=== PATIENT | female | born 1950 | race Asian ===

== ENCOUNTER 2023-11-13 14:52 | Emergency (ER) | payer MEDICAID, SELFPAY ==
[2023-11-13 15:01] VITALS: BP 100/70
--- NOTE | 2023-11-13 18:10 | EDRN ---
Adalberto FANG in room w/ pt at this time.
[2023-11-13] MEDS: PROTONIX 40 MG PO (18:29)
[2023-11-13] MEDS: CARAFATE SUSPENSION 1 GM PO (18:30)
[2023-11-13 18:32] VITALS: BP 211/98
[2023-11-13 18:35] VITALS: BP 213/94
--- NOTE | 2023-11-13 18:35 | ED.GENMED ---
History of Present Illness
General
Chief Complaint: Oral/Mouth Problem
Source: spouse
Exam Limitations: other (language barrier with patient. )
Time Seen by Provider: 11/13/23 18:00
Travel History
Have you had any contact with someone who has COVID-19?: No
Do you have any symptoms of coronavirus? Fever > 100 degrees, chills, cough, shortness of breath, sore throat, loss of taste or smell, muscle aches, or headache?: No
History of Present Illness
History of Present Illness:
This is a 73 year old female that comes in with her with c/o burning and itching in her mouth. States that she has difficultly eating due to the burning and this has been going on for the past 3-4 months. Denies any fever, chills, chest
pain, SOB, abd pain, nausea, vomiting, diarrhea, headache, dizziness.
Past History
Past History
ED Past Medical History: Cancer (Left breast CA), HTN, Hypercholesterolemia and Hypothyroidism
ED Past Surgical History: Other (Left lumpectomy)
Social History
Tobacco: Non-smoker
Alcohol: None
Drug: None
Personal:
Living: with family
Employment: Not employed
Family History
Family History: Other
Review of Systems
Review of Systems
All Other Systems: ROS reviewed and negative except as documented in HPI and ROS
Constitutional: Reports no symptoms; Denies fever or chills
EENT: Reports other (Mouth burning and itching)
Respiratory: Reports no symptoms; Denies cough or trouble breathing
Cardiac: Reports no symptoms; Denies chest pain
ABD/GI: Reports no symptoms; Denies abdominal pain, nausea, vomiting or diarrhea
: Reports no symptoms; Denies dysuria, frequency or urgency
Musculoskeletal: Reports no symptoms
Skin: Reports no symptoms
Neurological: Reports no symptoms; Denies dizzy or headache
Psychiatric: Reports no symptoms
Phy Exam
General Physical Exam
General Presentation: no apparent distress
General age: appears stated age
General Skin: warm and dry
General Habitus: normal
General Mental: alert
General Hydration: appears well hydrated
ENT Exam
ENT Exam: TM's normal, pharynx normal, neck supple and other (Negative for any swelling, redness. Tongue is normal and patient is moving the tongue all over with difficulty. )
Eye Exam
Eye Exam: EOMI
Cardiovascular Exam
Cardiovascular Exam: regular rate/rhythm, no edema, no murmur and normal peripheral pulses
Pulmonary Exam
Pulmonary Exam: lungs clear, no respiratory distress, no rales, chest non tender, no crackles, no rhonchi, no wheezing and no cough
Gastrointestinal Exam
Gastrointestinal Exam: normal bowel sounds, non tender, soft, no organomegaly, no pulsatile mass and non distended
Musculoskeletal Exam
Musculoskeletal Exam: full ROM and no edema
Skin Exam
Skin Exam: normal color, warm/dry, no rash and no petechia
Psychiatric Exam
Psychiatric Exam: normal mood/affect
Course
Orders/Labs/Results
Orders:
Orders
11/13/23 18:14
Pantoprazole [Protonix] 40 mg PO NOW STA
Sucralfate Suspension [Carafate Suspension] 1 gm PO NOW STA
Vital Signs
Initial and Last Documented VS:
Initial Vital Signs
Temp Pulse Resp BP Pulse Ox
98.0 F 67 16 100/70 98
11/13/23 15:01 11/13/23 15:01 11/13/23 15:01 11/13/23 15:01 11/13/23 15:01
Last Documented Vital Signs
Temp Pulse Resp BP Pulse Ox
98.0 F 86 16 211/98 97
11/13/23 15:01 11/13/23 18:32 11/13/23 18:32 11/13/23 18:32 11/13/23 18:32
MDM/Problems Addressed
Differential Diagnosis Includes:
Allergic reaction to food, Gingivitis,
MDM/Problems Addressed:
This is a 73 year old female that comes in with c/o burning and itching in her mouth for the past 3-4 months. is the translating. States that her tongue is not swollen but she keeps complaining.
Will start patient on Protonix and Carafate. Patient is to follow up with the Dentist for further evaluation. Patient to return with any concerns concerns.
Chronic conditions affecting care:
NA
Acute Exacerbation and/or Progression of Chronic Illness:
NA
*Pulse Oximetry
Patient hypoxic: no
*EKG
Interpreted by ED Provider?: NA
Rate: EKG- N/A
*Counter Top Maker Interpretation
Rate: Counter Top Maker- N/A
*Critical Care Note
Total Time (30-74mins, 75-104mins- exclusive of procedures): Not Applicable
ED Attending Note
-
Portions of this chart may have been created with voice recognition software.� Occasional wrong word or��sound alike� substitutions may have occurred due to the inherent limitations of voice recognition software.
Discharge Plan
Departure
Patient Disposition: Home (Routine Discharge)
Date of Disposition: 11/13/23
Time of Disposition: 18:43
Patient with high blood pressure during this ER visit?: Yes
Covid-19: Not Applicable
Discharge Problem:
Disease of mouth
Instructions: Burning Mouth Syndrome, BLOOD PRESSURE
Prescriptions:
New
pantoprazole [Protonix] 40 mg tablet,delayed release (DR/EC)
40 mg PO DAILY Qty: 30 0RF
sucralfate [Carafate] 1 gram tablet
1 g PO ACHS Qty: 40 0RF
Rx Instructions:
dissolve 2tsp water, 30min-1hour before meals HS
No Action
pilocarpine HCl 5 MG tablet
5 mg PO TID
levothyroxine 50 MCG tablet
50 mcg PO DAILY
losartan 25 MG tablet
25 mg PO DAILY
escitalopram oxalate 10 MG tablet
10 mg PO DAILY
metoprolol tartrate 25 MG tablet
25 mg PO BID
oxybutynin chloride 10 MG tablet extended release 24hr
10 mg PO .DAILY SEE NOTE
Patient Comments:
05/19/17 Per pt she has not taking in about 3 weeks or a month because it gives her dry mouth , but recently filled at pharmacy to start taking again
triamcinolone acetonide 1 APPLIC cream
1 applic topical BID
omeprazole 40 MG capsule,delayed release(DR/EC)
40 mg PO DAILY
acetaminophen [Tylenol Extra Strength] 500 MG tablet
500 - 1,000 mg PO DAILYPRN PRN (Reason: pain)
tamoxifen [Nolvadex] 20 MG tablet
20 mg PO DAILY
prednisone 50 MG tablet
50 mg PO DAILY Qty: 2 0RF
Referrals:
Triny Moore, DMD [[facility]] - Follow up in 2-3 days
UNKNOWN - PT DOES,NOT KNOW [Family Provider] -
Activity Restrictions/Additional Instructions:
As discussed, your will need to see the dentist for further evaluation. Please call and make an appointment. Please increase her water intake to 8-8oz glasses daily. You have been given 2 prescriptions that will help decrease any reflux. IF
YOU HAVE ANY OTHER CONCERNS PLEASE RETURN TO THE EMERGENCY ROOM
Interventions
Interventions:
*Risk Screen - Suicide Last Done: 11/13/23 18:25
*General Assessment Last Done: 11/13/23 18:25
*Neglect/Abuse Screening Last Done: 11/13/23 18:25
ED- Fall Risk Assessment Last Done: 11/13/23 18:25
*ED COVID-19 Vaccine History Last Done: 11/13/23 15:01
[2023-11-13 19:00] VITALS: BP 221/97
== END 2023-11-13 19:10 | disposition home or self-care (01) ==
LOC: EMR 14:52
PROVIDERS: EMERGENCY PHYSICIAN Emergency Medicine
DX: K08.89 Other specified disorders of teeth and supporting structures (principal); K14.8 Other diseases of tongue; I10 Essential (primary) hypertension
CPT/HCPCS: 99283

== ENCOUNTER 2023-12-21 22:13 | Observation (INO) | payer OTHER, SELFPAY ==
[2023-12-21] VITALS (7 sets, daily range): BP systolic 127–209; BP diastolic 85–154
[2023-12-21 16:17] LABS: % Basophils 0.8 % (0-2); % Immature Granulocytes 0.5 % (0-0.5); % Lymphocytes 31.4 % (20.5-51.1); % Neutrophils 51.3 % (42.2-75.2); Absolute Basophils 0.1 10^3/uL (0-0.2); Absolute Eosinophils 0.3 10^3/uL (0-0.7); Absolute Lymphocytes 2.7 10^3/uL (1.2-3.4); Absolute Neutrophils 4.4 10^3/uL (1.4-6.5); Hematocrit 44.6 % (37.0-47.0); Hemoglobin 14.6 g/dL (12.0-16.0); Mean Corp Hgb Conc. 32.7 g/dL (33.0-37.0); Mean Corpuscular Hgb 30.2 pg (27.0-31.0); Mean Corpuscular Volume 92.3 fL (81.0-99.0); Mean Platelet Volume 10.9 fL (7.4-10.4); Nucleated Red Blood Cells % 0 %; Platelet Count 169 10^3/uL (130-400); Red Blood Cell Count 4.83 10^6/uL (4.20-5.40); Red Cell Dist. Width 13.2 % (11.5-14.5); White Blood Cell Count 8.5 10^3/uL (4.8-10.8)
[2023-12-21 16:33] LABS: ALT (SGPT) 17 U/L (0-35); AST (SGOT) 25 U/L (14-36); Albumin 4.3 g/dl (3.5-5.0); Alkaline Phosphatase 100 U/L (38-126); Blood Urea Nitrogen 27 mg/dl (7-17); Calcium 9.4 mg/dl (8.4-10.2); Carbon Dioxide 25 mmol/L (22-30); Chloride 99 mmol/L (98-107); Glucose 107 mg/dl (70-99); Potassium 4.4 mmol/L (3.5-5.1); Sodium 130 mmol/L (135-145); Total Bilirubin 0.5 mg/dl (0.2-1.3); eGFR 47.21
[2023-12-21 16:42] LABS: Troponin I < 0.012 ng/ml
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
[2023-12-21 20:44] LABS: Urine Albumin Trace (Neg - Trace); Urine Bilirubin Negative (Negative); Urine Character Slightly Cloudy (Clear); Urine Color Yellow; Urine Glucose Negative (Negative); Urine Ketone Negative (Negative); Urine Leukocyte Trace (Negative); Urine Nitrite Negative (Negative); Urine Occult Blood 3+ (Negative); Urine Specific Gravity 1.015 (<1.030); Urine Urobilinogen Negative (Neg - 1+)
[2023-12-21] MEDS: NSS 500 IV (21:18)
[2023-12-21 21:25] LABS: Urine Bacteria Few (Negative); Urine Mucus Many; Urine White Cell 0-2 /HPF (0-5)
--- NOTE | 2023-12-21 21:25 | HPS.HSE ---
Family Physician
-
Family Physician: PHYSICIAN PRIVATE
Chief Complaint
-
balance issues
History of Present Illness
Ms. Phuc Norton is a 73 yo woman with hx left breast CA, HTN, HLD, hypothyroidism who presents to the ER with balance issues.
History is difficult to obtain. Patient denies pain. gives history that she has had several falls over past few months but over past several days she has had 2-3 episodes of losing balance and almost falling. She denies weakness in one
side and is denies that patient is slouching to once side. He was worried that she may have a bad fall and so brought her to the ER. Patient denies headache, numbness or tingling. No chest pain or shortness of breath. No abdominal pain,
nausea or vomiting.
Patient is sticking out her tongue to me during interview stating it feels like it's burning ( translating). Per this has been going on for 4-5 months. She is eating and drinking normally.
Patient does not walk with a cane or walker but is mainly sedentary all day. Per she is in bed most of day or on cough watching tv because 'there is nothing to do.'
Per , patient's mentation is at baseline. She is speaking to me rapidly in tangirnaq language during interview and per she wants to tell the doctor all of her chronic ailments but this is her normal communication.
Medical History
Past Medical History
Past Medical History: Reports Other (left breast CA, HTN, HLD, hypothyroidism)
Past Surgical History: Reports Other (left lumpectomy)
Social History
Tobacco: Non-smoker
Alcohol: None
Family History
Family History: Not pertinent
Allergies / Home Medications
Allergies reflects when Allergies were last updated in [employer].
Home Medications with original date entered in [employer]
Allergy/Medication List:
Allergies
Allergy/AdvReac Type Severity Reaction Status Date / Time
No Known Allergies Allergy Verified 12/21/23 15:51
Home Medications
clonidine HCl 0.2 mg tablet 0.2 mg PO TID 12/21/23
cyanocobalamin (vitamin B-12) 1,000 mcg tablet (Vitamin B-12) 1,000 mcg PO DAILY 12/21/23
docusate sodium 100 mg capsule 100 mg PO BID 12/21/23
doxepin 10 mg capsule 10 mg PO HS 12/21/23
escitalopram oxalate 20 mg tablet 20 mg PO DAILY 12/21/23
esomeprazole magnesium 40 mg capsule,delayed release 40 mg PO BID 12/21/23
ferrous sulfate 142 mg (45 mg iron) tablet,extended release (Slow Release Iron) 142 mg PO DAILY 12/21/23
latanoprost 0.005 % eye drops 1 drp BOTH EYES HS 12/21/23
levothyroxine 75 mcg tablet 75 mcg PO DAILY 12/21/23
metoprolol succinate 50 mg tablet,extended release 24 hr 50 mg PO DAILY 12/21/23
mirabegron 25 mg tablet,extended release 24 hr (Myrbetriq) 25 mg PO DAILY 12/21/23
solifenacin 10 mg tablet 10 mg PO DAILY 12/21/23
sulindac 150 mg tablet 150 mg PO BID 12/21/23
*awaiting final med rec
Review of Systems
-
History Source: Patient
A 12 point ROS was completed and negative except as noted: Yes
Physical Exam
Vital Signs
Vital Signs
Temp Pulse Resp BP Pulse Ox
98.7 F 80 21 183/98 94
12/21/23 15:52 12/21/23 18:30 12/21/23 18:30 12/21/23 15:52 12/21/23 18:30
Physical Exam
General: No Apparent Distress and Other (conversant)
HEENT: Other (tongue possible swelling? unclear baseline; symmetrical)
Respiratory: Clear; No Wheezes
Cardiac: S1/S2 and Regular Rhythm
GI: Soft and Non Tender
Musculoskeletal: No Edema
Skin: Warm and Dry; No Rash
Neuro: Awake and Alert
Psych: Anxious
Laboratory Results
-
12/21/23 16:09
12/21/23 16:09
Laboratory Results
Total Bilirubin 0.5 mg/dl (0.2-1.3) 12/21/23 16:09
AST 25 U/L (14-36) 12/21/23 16:09
ALT 17 U/L (0-35) 12/21/23 16:09
Alkaline Phosphatase 100 U/L (38-126) 12/21/23 16:09
Troponin I < 0.012 ng/ml 12/21/23 16:09
Data Reviewed
-
Diagnostic Radiology: Report Reviewed by me
Lab Data: Labs Reviewed by me
Impression/Plan
-
Ms. Phuc Norton is a 73 yo woman with hx left breast CA, HTN, HLD, hypothyroidism who presents to the ER with balance issues.
Triage VS: T 98.7, P 63, RR 18, BP 183/98, SpO2 97%
LABS: WBC 8.5, Hg 14.6, PLT 169, Na 130, K+ 4.4, Cr1.2, Glucose 107, liver enzymes WNL, Trop Neg, UA with 306 RBC; 0-[address]
IMPRESSION:
No acute intracranial abnormality noted.
Moderate atrophy.
MAR: 1L IVF
Ambulatory Dysfunction
-no focal neuro deficits on exam; head CT clear. will admit patient to observation; suspect cause of recent increased falls and loss of balance is deconditioning as reports patient lays in bed all day
-PT/OT
Mild Hyponatremia
-s/p IVF in ER
-F/U urine studies
MARIO versus likely CKD
-s/p fluids in ER, repeat BMP tomorrow AM
C/o burning in mouth and tongue
-unclear etiology of this. Per this has been going on 3-4 months
-consider ENT referral on discharge
Hx Breast Cancer
Hypothyroidism
HLD
*awaiting med rec
DVT PPx hep subQ
FULL CODE
--- NOTE | 2023-12-21 22:05 | PHANOTE ---
Med Rec Note:
Unable to confirm 2 of the patient's medications. Pt and spouse discussing the medication back and forth but no confirmation given. Both medications filled recently.
[2023-12-21 22:40] LABS: Osmolality Urine 398 mOsm/kg (300-900)
[2023-12-21 22:47] LABS: Urine Sodium 39 mmol/L (30-90)
[2023-12-21 23:48] LABS: Vitamin D, 25-OH*** 48.9 ng/mL (30-80)
[2023-12-22 00:02] LABS: TSH 3.44 uIU/ml (0.47-4.68)
[2023-12-22 00:21] LABS: Vitamin B12 > 1000 pg/ml (239-931)
[2023-12-22 00:35] VITALS: BP 180/110
--- NOTE | 2023-12-22 00:43 | PTCARENOTE ---
Pt transferred from ED. Pt ambulated into room with assistance. Pt AAOX3, able to make needs known, VSS. Pt oriented to unit, call maher within reach, bed in lowest position. Will continue with current plan.
[2023-12-22] MEDS: PROTONIX 40 MG PO ×2 (01:06→09:57)
[2023-12-22] MEDS: LOPRESSOR 5 MG IV (01:06)
[2023-12-22] MEDS: SINEQUAN 10 MG PO (01:06)
[2023-12-22] MEDS: CATAPRES 0.200000000000000011 MG PO ×2 (01:06→09:57)
[2023-12-22] MEDS: DETROL LA 4 MG PO (01:06)
[2023-12-22] MEDS: XALATAN OPHTHALMIC SOLUTION 1 DROP BOTH EYES (01:06)
[2023-12-22 03:48] VITALS: BP 159/60
[2023-12-22] MEDS: SYNTHROID 75 MCG PO (06:23)
[2023-12-22 07:22] LABS: Hematocrit 42.1 % (37.0-47.0); Hemoglobin 14.1 g/dL (12.0-16.0); Mean Corp Hgb Conc. 33.5 g/dL (33.0-37.0); Mean Corpuscular Hgb 30.7 pg (27.0-31.0); Mean Corpuscular Volume 91.5 fL (81.0-99.0); Mean Platelet Volume 11.3 fL (7.4-10.4); Platelet Count 165 10^3/uL (130-400); Red Cell Dist. Width 13.4 % (11.5-14.5); White Blood Cell Count 8.2 10^3/uL (4.8-10.8)
[2023-12-22 07:30] VITALS: BP 176/80
[2023-12-22 08:11] LABS: Blood Urea Nitrogen 22 mg/dl (7-17); Calcium 9.2 mg/dl (8.4-10.2); Carbon Dioxide 27 mmol/L (22-30); Chloride 103 mmol/L (98-107); Glucose 85 mg/dl (70-99); Potassium 4.2 mmol/L (3.5-5.1); Sodium 138 mmol/L (135-145)
[2023-12-22 09:15] VITALS: BP 173/76; PULSE 64; O2SAT 96
[2023-12-22 09:34] VITALS: BP 173/76; PULSE 64; O2SAT 96
[2023-12-22] MEDS: TOPROL XL 50 MG PO (09:57)
[2023-12-22] MEDS: LEXAPRO PO (09:57)
[2023-12-22] MEDS: COLACE 100 MG PO (09:57)
[2023-12-22] MEDS: HEPARIN 5000 UNITS SC (09:58)
[2023-12-22] MEDS: VITAMIN B-12 1000 MCG PO (09:58)
[2023-12-22] MEDS: LEXAPRO 20 MG PO (10:06)
--- NOTE | 2023-12-22 11:24 | W.PN.HOSP.TC ---
Addendum entered and electronically signed by Curry Joe MD 12/22/23 15:35:
#Hypertension
[id number]
Addendum entered and electronically signed by Curry Joe MD 12/22/23 11:44:
add amlodipine 5mg daily, titrate as needed outpatient
Original Note:
Today's Communication/Plan
-
f/u bmp (Na) in 3-5 days with pcp
home PT
F/u PCP outpatient; F/u ENT outpatient
Can defer to PCP for Neuro/Psych eval outpatient
Assessment / Plan
Assessment / Plan
General: No Apparent Distress and Other (conversant)
HEENT: Other (tongue possible swelling? unclear baseline; symmetrical)
Respiratory: Clear; No Wheezes
Cardiac: S1/S2 and Regular Rhythm
GI: Soft and Non Tender
Musculoskeletal: No Edema
Skin: Warm and Dry; No Rash
Neuro: Awake and Alert
Psych: Anxious
Ms. Phuc Norton is a 73 yo woman with hx left breast CA, HTN, HLD, hypothyroidism who presents to the ER with balance issues.
Ambulatory Dysfunction
-no focal neuro deficits on exam; head CT clear. will admit patient to observation; suspect cause of recent increased falls and loss of balance is deconditioning as reports patient lays in bed all day
-PT/OT - home PT
-should f/u pcp outpatient; May be related to psych issues v neurological and would defer to PCP;
-no urinary symptoms
Mild Hyponatremia
-s/p IVF in ER
-resolved
-F/u BMP in 3-5 days with pcp
CKD
-stable
C/o burning in mouth and tongue
-unclear etiology of this. Per this has been going on 3-4 months
-ENT referral on discharge
-toelrating diet with no difficulty; no obvious sensomotor deficits
Hx Breast Cancer
Hypothyroidism
HLD
DVT PPx hep subQ
FULL CODE
More than 30 minutes spent in discharge including
Final examination of the patient
Summarizing hospital stay
Instructions for continuing care to all relevant caregivers
Preparation of discharge records, prescriptions, and referral forms
Total time spent (35 in minutes):
Anticipated Discharge: Today
Subjective/Interval History
-
Date of Service: December 22, 2023
No acute events overnight, no obvious burning this morning
Objective Data
-
Labs:
Laboratory Results
12/22/23
06:30
WBC 8.2
Hgb 14.1
Hct 42.1
Plt Count 165
Sodium 138 D
Potassium 4.2
Chloride 103
Carbon Dioxide 27
BUN 22 H
Creatinine 1.1 H
Glucose 85
Calcium 9.2
Vital Signs:
Vital Signs
Temp Pulse Resp BP Pulse Ox
98.6 F 68 20 176/80 97
12/22/23 07:30 12/22/23 09:57 12/22/23 07:30 12/22/23 09:57 12/22/23 07:30
I&O
12/21/23 12/22/23 12/23/23
06:59 06:59 06:59
Intake Total 480 / 480
Balance 480 / 480
Review of Systems
-
History Source: Patient
All other systems: Not reviewed unless documented
Data Reviewed
-
CT Scan: Image personally visualized and interpreted and Report Reviewed by me
Labs: Labs Reviewed by me
[2023-12-22 11:37] VITALS: BP 165/76
--- NOTE | 2023-12-22 11:59 | W.DS.TRANS ---
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
-
Discharge Instructions:
Discharge Diagnosis/Procedures
Ambulatory Dysfunction
Diet Low Cholesterol,Low Fat
Activity As tolerated
Blood Work bmp(sodium levels) in 2-3 days with pcp
Instructions:
Stand-Alone Forms:
Changes to Home Medications: Yes
Discharge Medications:
DC Medications w/original date entered in [employer]
clonidine HCl 0.2 mg tablet 0.2 mg PO TID 12/21/23
cyanocobalamin (vitamin B-12) 1,000 mcg tablet (Vitamin B-12) 1,000 mcg PO DAILY Supplement 12/21/23
docusate sodium 100 mg capsule 100 mg PO BID Constipation 12/21/23
doxepin 10 mg capsule 10 mg PO HS 12/21/23
escitalopram oxalate 20 mg tablet 20 mg PO DAILY 12/21/23
esomeprazole magnesium 40 mg capsule,delayed release 40 mg PO BID Gastrointestinal Issue 12/21/23
ferrous sulfate 142 mg (45 mg iron) tablet,extended release (Slow Release Iron) 142 mg PO DAILY Supplement 12/21/23
latanoprost 0.005 % eye drops 1 drp BOTH EYES HS Eye Condition 12/21/23
levothyroxine 75 mcg tablet 75 mcg PO DAILY Thyroid 12/21/23
metoprolol succinate 50 mg tablet,extended release 24 hr 50 mg PO DAILY Heart Disease/Condition 12/21/23
mirabegron 25 mg tablet,extended release 24 hr (Myrbetriq) 25 mg PO DAILY 12/21/23
solifenacin 10 mg tablet 10 mg PO QPM 12/21/23
sulindac 150 mg tablet 150 mg PO BID PRN mild pain 12/21/23
amlodipine 5 mg tablet 5 mg PO DAILY 30 days #30 tabs 12/22/23
Home Medication Changes
amlodipine 5 mg tablet 5 mg PO DAILY 30 days #30 tabs 12/22/23
Pending Results: No
--- NOTE | 2023-12-22 12:37 | CM ---
manager document reviewed patient's chart and patient was admitted under OBS, OBS letter explained to patient and placed on chart family did not sign, Patient lives with son in area in a 2 story home, patient is independent with adl's and ambulation, no
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
less than a week in this area and not in [place]. manager document explained to patient and spouse that visiting nurses could not be arranged due to family limitations on when they are available.
PCP: Dr. Vanegas
Plan; Home with spouse to son's house.
--- NOTE | 2023-12-22 14:40 | PTCARENOTE ---
Discharge paperwork read and reviewed with patient and . Patient and expressing an understanding of plan of care after d/c. IV access removed. All belongings packed and accounted for. bicycle rental clerk calling for transport for patient down
to meet son---but patient and just leaving without waiting for transport team.
== END 2023-12-22 14:51 | disposition home or self-care (01) ==
LOC: 4 WEST ACU 22:13
PROVIDERS: Nurse Practitioner; ADMITTING PHYSICIAN Student in an Organized Health Care Education/Training Program; ATTENDING PHYSICIAN Internal Medicine; EMERGENCY PHYSICIAN Student in an Organized Health Care Education/Training Program
DX: R29.6 Repeated falls (principal); R26.2 Difficulty in walking, not elsewhere classified; E78.00 Pure hypercholesterolemia, unspecified; N28.9 Disorder of kidney and ureter, unspecified; R42 Dizziness and giddiness; I10 Essential (primary) hypertension; E03.9 Hypothyroidism, unspecified; E87.1 Hypo-osmolality and hyponatremia; K13.79 Other lesions of oral mucosa; Z79.899 Other long term (current) drug therapy; Z85.3 Personal history of malignant neoplasm of breast
CPT/HCPCS: 70450; 80048; 80053; 81003; 81015; 82306; 82607; 83735; 83935; 84300; 84443; 84484; 85025; 85027; 93005; 97162; 97166; 99285; G0378

== ENCOUNTER 2024-01-05 15:00 | Emergency (ER) | payer OTHER, SELFPAY ==
[2024-01-05 15:08] VITALS: BP 154/125
[2024-01-05 15:51] LABS: % Eosinophils 5.4 % (0-6); % Immature Granulocytes 0.5 % (0-0.5); % Lymphocytes 28.3 % (20.5-51.1); % Monocytes 12.6 % (1.7-9.3); % Neutrophils 52.2 % (42.2-75.2); Absolute Basophils 0.1 10^3/uL (0-0.2); Absolute Eosinophils 0.4 10^3/uL (0-0.7); Absolute Lymphocytes 2.3 10^3/uL (1.2-3.4); Absolute Neutrophils 4.3 10^3/uL (1.4-6.5); Hematocrit 45.3 % (37.0-47.0); Hemoglobin 14.9 g/dL (12.0-16.0); Mean Corp Hgb Conc. 32.9 g/dL (33.0-37.0); Mean Corpuscular Hgb 30.5 pg (27.0-31.0); Mean Corpuscular Volume 92.6 fL (81.0-99.0); Mean Platelet Volume 10.5 fL (7.4-10.4); Nucleated Red Blood Cells % 0 %; Platelet Count 162 10^3/uL (130-400); Red Blood Cell Count 4.89 10^6/uL (4.20-5.40); Red Cell Dist. Width 12.8 % (11.5-14.5); White Blood Cell Count 8.2 10^3/uL (4.8-10.8)
[2024-01-05 16:13] LABS: ALT (SGPT) 16 U/L (0-35); AST (SGOT) 24 U/L (14-36); Albumin 4.3 g/dl (3.5-5.0); Alkaline Phosphatase 101 U/L (38-126); Blood Urea Nitrogen 26 mg/dl (7-17); Calcium 9.8 mg/dl (8.4-10.2); Carbon Dioxide 26 mmol/L (22-30); Chloride 101 mmol/L (98-107); Glucose 80 mg/dl (70-99); Potassium 4.2 mmol/L (3.5-5.1); Sodium 133 mmol/L (135-145); Total Bilirubin 0.5 mg/dl (0.2-1.3); Total Protein 7.9 g/dl (6.3-8.2)
[2024-01-05 16:46] VITALS: BMI 24.7
[2024-01-05 16:54] VITALS: BP 181/97
--- NOTE | 2024-01-05 17:09 | ED.GENMED ---
History of Present Illness
General
Chief Complaint: Dizziness
Source: patient, records and spouse
Time Seen by Provider: 01/05/24 16:27
Travel History
Have you had any contact with someone who has COVID-19?: No
Do you have any symptoms of coronavirus? Fever > 100 degrees, chills, cough, shortness of breath, sore throat, loss of taste or smell, muscle aches, or headache?: No
History of Present Illness
History of Present Illness:
73-year-old female with past medical history of hypertension and hypothyroidism presenting back to the emergency for evaluation due to continued intermittent balance issues which patient has been experiencing for many months if not longer, unchanged
today but is concerned that they have not been able to get outpatient follow-up. Patient was admitted earlier this month with no significant abnormalities found despite imaging and lab work being done. It was noted on her discharge summary
that it was thought to be some deconditioning as patient mainly lays in bed all day and has minimal activity around the house or outside. Patient is denying any fevers, chills, rigors. There is also associated burning sensation of the tongue and
mouth but this is also a chronic issue that is unchanged today.
Past History
Past History
ED Past Medical History: Cancer (Left breast CA), HTN, Hypercholesterolemia and Hypothyroidism
ED Past Surgical History: Other (Left lumpectomy)
Social History
Tobacco: Non-smoker
Alcohol: None
Drug: None
Personal:
Living: with family
Employment: Not employed
Family History
Family History: Other
Review of Systems
Review of Systems
All Other Systems: ROS reviewed and negative except as documented in HPI and ROS
Phy Exam
Physical Exam
Physical Exam:
GENERAL: Alert , in no apparent distress
EYE: conjunctiva clear
NECK: Supple
ENT: o/p clr, mmm.
CARDIAC: Regular rate and rhythm
LUNGS: Clear breath sounds bilaterally, no acute respiratory distress, no wheezes/rales/rhonchi
NEUROLOGICAL: Alert and oriented, patient was able to ambulate with walker as well as on her own without any assistance with a steady gait
SKIN: Warm and dry, skin intact.
MUSCULOSKELETAL: well perfused.
PSYCH: Normal and appropriate interaction.
Scores
Heart Failure Risk
Heart Failure Risk Score: Not Applicable
Heart Score for Chest Pain Patients
STEMI patient?: Not applicable
Withdrawal Assessment of Alcohol
Withdrawal Assessment Completed?: Not applicable
Course
Orders/Labs/Results
Orders:
Orders
01/05/24 15:46
CMP [Comprehensive Metabolic Panel] Urgent
Complete Blood Count/With Diff Urgent
Abnormal Lab Results
01/05/24
15:46
MCHC 32.9 L g/dL
(33.0-37.0)
MPV 10.5 H fL
(7.4-10.4)
Absolute Monos (auto) 1.0 H 10^3/uL
(0.1-0.6)
Monocytes % 12.6 H %
(1.7-9.3)
Sodium 133 L mmol/L
(135-145)
BUN 26 H mg/dl
(7-17)
Creatinine 1.1 H mg/dL
(0.6-1.0)
01/05/24 15:46
01/05/24 15:46
Vital Signs
Initial and Last Documented VS:
Initial Vital Signs
Temp Pulse Resp BP Pulse Ox
97.3 F 54 18 154/125 99
01/05/24 15:08 01/05/24 15:08 01/05/24 15:08 01/05/24 15:08 01/05/24 15:08
Last Documented Vital Signs
Temp Pulse Resp BP Pulse Ox
97.3 F 75 18 181/97 97
01/05/24 15:08 01/05/24 16:54 01/05/24 16:54 01/05/24 16:54 01/05/24 16:54
MDM/Problems Addressed
Differential Diagnosis Includes:
Deconditioning, electrolyte disturbance, no concern for infectious etiology
MDM/Problems Addressed:
73-year-old female presenting back to the emergency department for continued balance issues. This is overall a chronic issue and unchanged from multiple visits to this emergency department. Patient was evaluated here on an inpatient basis with no
etiology found. Patient has not followed up with anybody since her hospitalization nor has an appoint scheduled. It is unclear as to why patient and have not been following up with any of her outside providers. Will attempt to contact
primary care provider in hopes to make patient an appointment. In the meantime we will check repeat labs.
*Pulse Oximetry
Patient hypoxic: no
*Critical Care Note
Total Time (30-74mins, 75-104mins- exclusive of procedures): Not Applicable
Data Reviewed
Review of Other/Old Records Reveals: Labs and Discharge Summary
Source: patient and spouse
Patient Management
Discussion with other providers: PCP
Escalation/DeEscalation of care consider admission/obs:
I was able to speak with the office staff of patient's primary care provider who states that patient had not contacted them since her discharge from the hospital and that the only contact that is been made is for patient's medication refills. I was
able to make an appointment with the primary care provider for this coming Monday at 1 PM. I faxed them patient's discharge summary as they are not affiliated with the [facility]. I also sent them patient's most recent lab work. On
patient's discharge summary I provided the patient and spouse with the information about their appointment as well as verbally gave them these instructions. Patient was able to ambulate out of the emergency department without any difficulty.
Stable for discharge home.
ED Attending Note
-
Portions of this chart may have been created with voice recognition software.� Occasional wrong word or��sound alike� substitutions may have occurred due to the inherent limitations of voice recognition software.
Discharge Plan
Departure
Patient Disposition: Home (Routine Discharge)
Date of Disposition: 01/05/24
Time of Disposition: 17:10
Patient with high blood pressure during this ER visit?: Yes
Discharge Problem:
Generalized weakness
Instructions: Generalized Weakness (DC)
Prescriptions:
No Action
latanoprost 0.005 % drops
1 drp BOTH EYES HS
metoprolol succinate 50 mg tablet extended release 24 hr
50 mg PO DAILY
cyanocobalamin (vitamin B-12) [Vitamin B-12] 1,000 mcg tablet
1,000 mcg PO DAILY
sulindac 150 mg tablet
150 mg PO BID PRN (Reason: mild pain)
doxepin 10 mg capsule
10 mg PO HS
levothyroxine 75 mcg tablet
75 mcg PO DAILY
clonidine HCl 0.2 mg tablet
0.2 mg PO TID
esomeprazole magnesium 40 mg capsule,delayed release(DR/EC)
40 mg PO BID
escitalopram oxalate 20 mg tablet
20 mg PO DAILY
Patient Comments:
12/21/2023: Spouse states yes, pt unable to confirm, kept on grabbing bottles. Filled 11/07/23, 90 tabs for 90 days from
solifenacin 10 mg tablet
10 mg PO QPM
Slow Release Iron 142 mg (45 mg iron) tablet extended release
142 mg PO DAILY
Myrbetriq 25 mg tablet extended release 24 hr
25 mg PO DAILY
Patient Comments:
12/21/2023: pt and spouse couldn't confirm if pt was taking this med. pt's spouse states she had multiple accidents. Last filled 11/27/23, 30 tabs for 30 days from
docusate sodium 100 mg Capsule
100 mg PO BID
amlodipine 5 mg tablet
5 mg PO DAILY 30 Days Qty: 30 0RF
Activity Restrictions/Additional Instructions:
You have an appointment with your primary care doctor, Dr. Mark, at 1 PM on January 07. We have faxed your labs and reports to his office. You need to bring your discharge papers from the emergency meant to his office which has the lab
reports attached.
Interventions
Interventions:
*Risk Screen - Suicide Last Done: 01/05/24 16:47
*General Assessment Last Done: 01/05/24 16:47
*Neglect/Abuse Screening Last Done: 01/05/24 16:47
*ED COVID-19 Vaccine History Last Done: 01/05/24 16:47
*Nursing Disposition Last Done: 01/05/24 17:44
ED- Neurological Assessment Last Done: 01/05/24 17:30
ED Swallowing Screen Last Done: 01/05/24 17:30
Discharge Date and Time
Discharge Date/Time: 01/05/24 17:45
Print Language: OMANI
== END 2024-01-05 17:45 | disposition home or self-care (01) ==
LOC: EMR 15:00
PROVIDERS: EMERGENCY PHYSICIAN Emergency Medicine
DX: R53.1 Weakness (principal); R42 Dizziness and giddiness; R20.8 Other disturbances of skin sensation; I10 Essential (primary) hypertension; E03.9 Hypothyroidism, unspecified
CPT/HCPCS: 99283; 80053; 85025

== ENCOUNTER 2024-09-03 22:56 | Inpatient (IN) | payer OTHER, SELFPAY ==
[2024-09-03 19:20] VITALS: BP 154/77
[2024-09-03 19:22] VITALS: BP 154/77
[2024-09-03 19:43] LABS: % Basophils 0.7 % (0-2); % Eosinophils 3.7 % (0-6); % Lymphocytes 24.4 % (20.5-51.1); % Monocytes 13.5 % (1.7-9.3); % Neutrophils 56.7 % (42.2-75.2); Absolute Basophils 0.1 10^3/uL (0-0.2); Absolute Eosinophils 0.4 10^3/uL (0-0.7); Absolute Immature Granulocytes 0.1 10^3/uL (0-0.05); Absolute Lymphocytes 2.6 10^3/uL (1.2-3.4); Absolute Monocytes 1.5 10^3/uL (0.1-0.6); Absolute Neutrophils 6.1 10^3/uL (1.4-6.5); Hematocrit 40.5 % (37.0-47.0); Mean Corp Hgb Conc. 34.6 g/dL (33.0-37.0); Mean Corpuscular Hgb 29.7 pg (27.0-31.0); Mean Corpuscular Volume 85.8 fL (81.0-99.0); Mean Platelet Volume 9.7 fL (7.4-10.4); Nucleated Red Blood Cells % 0 %; Platelet Count 278 10^3/uL (130-400); Red Blood Cell Count 4.72 10^6/uL (4.20-5.40); Red Cell Dist. Width 12.3 % (11.5-14.5); White Blood Cell Count 10.8 10^3/uL (4.8-10.8)
[2024-09-03 19:49] LABS: ALT (SGPT) 18 U/L (0-35); AST (SGOT) 27 U/L (14-36); Albumin 4.5 g/dl (3.5-5.0); Alkaline Phosphatase 95 U/L (38-126); Blood Urea Nitrogen 17 mg/dl (7-17); Calcium 9.4 mg/dl (8.4-10.2); Carbon Dioxide 29 mmol/L (22-30); Chloride 80 mmol/L (98-107); Glucose 104 mg/dl (70-99); Lipase 175 U/L (23-300); Potassium 3.5 mmol/L (3.5-5.1); Sodium 120 mmol/L (135-145); Total Bilirubin 0.8 mg/dl (0.2-1.3); Total Protein 7.7 g/dl (6.3-8.2); eGFR 42.62
--- NOTE | 2024-09-03 20:48 | ED.GENMED ---
History of Present Illness
General
Chief Complaint: Abdominal Pain
Time Seen by Provider: 09/03/24 20:48
History of Present Illness
History of Present Illness:
TIME OF INITIAL ENCOUNTER: 8 PM
HPI: The patient initially came in due to constipation. She has been drinking fluids and son estimates about 2 to 3 glasses/day. She has a general unwell feeling but denies abdominal pain. She has not had vomiting. She does not take any
diuretics.
EXAM:
GENERAL: Well appearing in minimal distress
HEENT: Moist oral mucosa
CARDIOVASCULAR: No murmurs, normal heart rate, regular rhythm, No chest wall tenderness
PULMONARY: No respiratory distress, breath sounds are clear and equal
ABDOMEN: Soft with no peritoneal signs, no tenderness, empty rectal vault
NEUROLOGIC: Fair strength all extremities, no coordination deficits
PSYCHIATRIC: Appropriate mental status, normal insight and judgement
EXTREMITIES: Nontender, no edema, moves all extremities equally
SKIN: No rash, no lesions
NUMBER AND COMPLEXITY OF PROBLEMS ADDRESSED AT THE ENCOUNTER
� Chronic conditions affecting care: High blood pressure, hypothyroidism
� Acute Exacerbation and/or Progression of Chronic Illness: This is an acute problem
� Differential Diagnosis includes: Rectal fecal impaction, constipation, dehydration, electrolyte abnormality
AMOUNT AND/OR COMPLEXITY OF DATA TO BE REVIEWED AND ANALYZED
� I performed an independent evaluation of and my interpretation is:
EKG:
CT:
X-rays: Obstruction series x-ray shows a nonspecific bowel gas pattern with moderate amount of stool
Laboratory Studies: Sodium 120, creatinine 1.3
Other:
� Review of other/old records: I reviewed records, the patient was here in the past and at one point had a sodium of 130 which improved after IV fluids were given
� Clinical information was obtained by an independent historian: I spoke to the son at bedside
� Prescriptions/Medications Considered but not given:
� Further testing considered but not performed: Considered CT imaging of the abdomen pelvis however the patient has no tenderness on exam and does not report any significant abdominal pain
RISK OF COMPLICATIONS AND/OR MORBIDITY OR MORTALITY OF PATIENT MANAGEMENT
� Social determinants of health affecting care: Lives at home
� Discussion with other providers: Hospitalist, Dr. Castle for admission at 10:30 PM
� Escalation of care including admission/observation vs risk of discharge considered: Although the patient's main symptom is constipation, she is found to be rather significantly hyponatremic. Her serum osmolality is 253 and her
urine osmolality is 223 and urine sodium is 19�I have ordered IV fluids.
ANY OTHER UPDATES:
10:30 PM: I reassessed patient, will plan keeping patient in the hospital for further management of hyponatremia
Past History
Past History
ED Past Medical History: Cancer (Left breast CA), HTN, Hypercholesterolemia and Hypothyroidism
ED Past Surgical History: Other (Left lumpectomy)
Social History
Tobacco: Non-smoker
Alcohol: None
Drug: None
Personal:
Living: with family
Employment: Not employed
Family History
Family History: Other
Phy Exam
Physical Exam
Physical Exam:
See HPI
Course
Orders/Labs/Results
Orders:
Orders
09/03/24 19:26
Complete Blood Count/With Diff Urgent
Comprehensive Metabolic Panel Urgent
Lipase Urgent
Serum Osmolality Urgent
Comment: ADD ON
TSH Reflex To Free T4 Urgent
Comment: ADD ON
09/03/24 20:49
Add On- LAB Urgent
Tests Added?: serum osm
09/03/24 20:59
CR Obstruct Series W/pa Chest Urgent
Comment:
Reason For Exam: contipation
09/03/24 21:28
Osmolality, Random Urine Urgent
Date Specimen was Collected: 09/03/24
Time Specimen was Collected: 21:26
Urine Sodium Urgent
Date Specimen was Collected: 09/03/24
Time Specimen was Collected: 21:26
09/03/24 22:23
0.9% Sodium Chloride 500 ml [Nss] 500 ml IV BOLUS
09/03/24 22:29
Add On- LAB Urgent
Tests Added?: tsh reflex fT4
09/03/24 22:38
Admit/Transfer Patient As Directed
Co-Sign Provider:
Level of Care: Inpatient admission
Assign to:: Telemetry
Physician / Group: amanda villatoro
Diagnosis: hyponatremia
Reason for Telemetry: Other
Other Reason for Telemetry: electrolyte imbalance
Date to Stop Telemetry: 09/05/24
Time to Stop Telemetry: 11:00
Reason for Hospitalization: hyponatremia
Expected length of stay greater than two midnights?: Yes
ELOS- Estimated Length of Stay in days: 3
I certify the patient meets the requirements for IP care: Yes
09/03/24 22:39
PRN Pain Medication Management As Directed
May give lesser potent ordered pain med per pt: Yes
preference::
Protocol:: Medication orders for pain may be administered in a
manner that supports deferring to patient preference
when the pt is:
- Requesting an ordered lesser potent pain medication.
Least to most potent pain medications are defined
as: acetaminophen < NSAID < tramadol < opioids
(morphine, oxycodone, hydromorphone).
- Requesting a lesser dose of the same medication IF
ORDERED.
- Requesting a less intrusive route of administration
if both routes are prescribed by the provider (PO <
IV).
09/03/24 22:41
Code Status As Directed
Resuscitation Status: Full Code
09/05/24 11:00
DC Protocol for Telemetry ONCE
Abnormal Lab Results
09/03/24 09/03/24
19:26 21:28
Abs Immat Gran (auto) 0.1 H 10^3/uL
(0-0.05)
Absolute Monos (auto) 1.5 H 10^3/uL
(0.1-0.6)
Immature Gran % 1.0 H %
(0-0.5)
Monocytes % 13.5 H %
(1.7-9.3)
Sodium 120 L mmol/L
(135-145)
Chloride 80 L mmol/L
(98-107)
Creatinine 1.3 H mg/dL
(0.6-1.0)
Glucose 104 H mg/dl
(70-99)
Serum Osmolality 253 L mOsm/kg
(275-300)
Urine Osmolality 223 L mOsm/kg
(300-900)
Urine Sodium 19 L mmol/L
(30-90)
09/03/24 19:26
09/03/24 19:26
Vital Signs
Initial and Last Documented VS:
Initial Vital Signs
Temp Pulse Resp BP Pulse Ox
37.1 C 73 18 154/77 98
09/03/24 19:20 09/03/24 19:20 09/03/24 19:20 09/03/24 19:20 09/03/24 19:20
Last Documented Vital Signs
Temp Pulse Resp BP Pulse Ox
37.1 C 72 15 121/66 95
09/03/24 19:20 09/03/24 22:30 09/03/24 22:30 09/03/24 22:29 09/03/24 22:30
*Critical Care Note
Total Time (30-74mins, 75-104mins- exclusive of procedures): Not Applicable
ED Attending Note
-
Portions of this chart may have been created with voice recognition software.� Occasional wrong word or��sound alike� substitutions may have occurred due to the inherent limitations of voice recognition software.
Discharge Plan
Departure
Patient Disposition: Admit
Date of Disposition: 09/03/24
Time of Disposition: 22:29
Presentation/result/management discussed w/ accepting MD/DO: Hospitalist
Patient with high blood pressure during this ER visit?: Yes
Discharge Problem:
Acute hyponatremia
Prescriptions:
No Action
metoprolol succinate 50 mg tablet extended release 24 hr
50 mg PO DAILY
doxepin 10 mg capsule
10 mg PO HS
levothyroxine 75 mcg tablet
75 mcg PO DAILY
clonidine HCl 0.2 mg tablet
0.2 mg PO TID
esomeprazole magnesium 40 mg capsule,delayed release(DR/EC)
40 mg PO BID
escitalopram oxalate 20 mg tablet
20 mg PO DAILY
Patient Comments:
12/21/2023: Spouse states yes, pt unable to confirm, kept on grabbing bottles. Filled 11/07/23, 90 tabs for 90 days from
amlodipine 5 mg tablet
5 mg PO DAILY 30 Days Qty: 30 0RF
hydrochlorothiazide 12.5 mg Capsule
12.5 mg PO DAILY
Gemtesa 75 mg Tablet
75 mg PO DAILY
Referrals:
UNKNOWN - PT DOES,NOT KNOW [Family Provider] -
Discharge Date and Time
Print Language: ARABIC
[2024-09-03 21:00] VITALS: BP 121/52
[2024-09-03 21:18] LABS: Osmolality Serum 253 mOsm/kg (275-300)
[2024-09-03 21:42] LABS: Osmolality Urine 223 mOsm/kg (300-900)
[2024-09-03 22:12] LABS: Urine Sodium 19 mmol/L (30-90)
[2024-09-03 22:29] VITALS: BP 121/66
[2024-09-03] MEDS: NSS 500 IV (22:36)
[2024-09-03 23:00] VITALS: BP 126/97
[2024-09-03 23:15] LABS: TSH Reflex To Free T4 2.88 uIU/ml (0.47-4.68)
--- NOTE | 2024-09-03 23:16 | HPS.HSE ---
Family Physician
-
Family Physician: NOT KNOW UNKNOWN - PT DOES
Chief Complaint
-
constipation
History of Present Illness
HPI
73F HX left breast CA, HTN, HLD, hypothyroidism, mild Hyponatremia on HCTZ
- initially came in due to constipation.
- She has been drinking fluids and son estimates about 2 to 3 glasses/day
- She has a general unwell feeling but denies abdominal pain.
- No vomiting.
Medical History
Past Medical History
Past Medical History: Reports Other (left breast CA, HTN, HLD, hypothyroidism)
Past Surgical History: Reports Other (left lumpectomy)
Social History
Tobacco: Non-smoker
Alcohol: None
Family History
Family History: Not pertinent
Allergies / Home Medications
Allergies reflects when Allergies were last updated in [employer].
Home Medications with original date entered in [employer]
Allergy/Medication List:
Allergies
Allergy/AdvReac Type Severity Reaction Status Date / Time
No Known Allergies Allergy Verified 12/21/23 15:51
Home Medications
clonidine HCl 0.2 mg tablet 0.2 mg PO TID 12/21/23
cyanocobalamin (vitamin B-12) 1,000 mcg tablet (Vitamin B-12) 1,000 mcg PO DAILY 12/21/23
docusate sodium 100 mg capsule 100 mg PO BID 12/21/23
doxepin 10 mg capsule 10 mg PO HS 12/21/23
escitalopram oxalate 20 mg tablet 20 mg PO DAILY 12/21/23
esomeprazole magnesium 40 mg capsule,delayed release 40 mg PO BID 12/21/23
ferrous sulfate 142 mg (45 mg iron) tablet,extended release (Slow Release Iron) 142 mg PO DAILY 12/21/23
latanoprost 0.005 % eye drops 1 drp BOTH EYES HS 12/21/23
levothyroxine 75 mcg tablet 75 mcg PO DAILY 12/21/23
metoprolol succinate 50 mg tablet,extended release 24 hr 50 mg PO DAILY 12/21/23
mirabegron 25 mg tablet,extended release 24 hr (Myrbetriq) 25 mg PO DAILY 12/21/23
solifenacin 10 mg tablet 10 mg PO DAILY 12/21/23
sulindac 150 mg tablet 150 mg PO BID 12/21/23
*awaiting final med rec
Review of Systems
-
Constitutional: Reports No Symptoms
EENT: Reports No Symptoms
Respiratory: Reports No Symptoms
Cardiac: Reports No Symptoms
Abdomen/GI: Reports Constipated
: Reports No Symptoms
Musculoskeletal: Reports No Symptoms
Skin: Reports No Symptoms
Neurological: Reports No Symptoms
Endocrine: Reports No Symptoms
Hematologic/Lymphatic: Reports No Symptoms
Psych: Reports No Symptoms
Physical Exam
Vital Signs
Vital Signs
Temp Pulse Resp BP Pulse Ox
98.7 F 72 15 121/66 95
09/03/24 19:20 09/03/24 22:30 09/03/24 22:30 09/03/24 22:29 09/03/24 22:30
Physical Exam
General: No Apparent Distress and Other (conversant)
HEENT: Other (tongue possible swelling? unclear baseline; symmetrical)
Respiratory: Clear; No Wheezes
Cardiac: S1/S2 and Regular Rhythm
GI: Soft and Non Tender
Musculoskeletal: No Edema
Skin: Warm and Dry; No Rash
Neuro: Awake and Alert
Psych: Anxious
Laboratory Results
-
09/03/24 19:26
09/03/24 19:26
Laboratory Results
Total Bilirubin 0.8 mg/dl (0.2-1.3) 09/03/24 19:26
AST 27 U/L (14-36) 09/03/24 19:26
ALT 18 U/L (0-35) 09/03/24 19:26
Alkaline Phosphatase 95 U/L (38-126) 09/03/24 19:26
Lipase 175 U/L (23-300) 09/03/24 19:26
Data Reviewed
-
Diagnostic Radiology: Report Reviewed by me
Lab Data: Labs Reviewed by me
Old Records: Reviewed
Impression/Plan
-
Reviewed VS:
Vital Signs
Temp Pulse Resp BP Pulse Ox
98.7 F 72 15 121/66 95
09/03/24 19:20 09/03/24 22:30 09/03/24 22:30 09/03/24 22:29 09/03/24 22:30
Laboratory Tests
01/05/24 09/03/24 09/03/24
15:46 19:26 21:28
WBC 10.8
Hgb 14.0
Plt Count 278
Sodium 133 L 120 L
Creatinine 1.1 H
eGFR 52.40 42.62
Glucose 104 H
Serum Osmolality 253 L
Urine Osmolality 223 L
Urine Sodium 19 L
CR Obstruct Series W/pa Chest
- Nonobstructive bowel gas pattern.
- Moderate colonic stool burden.
Last hospitalist admission: DATE OF ADMISSION: 12/21/2023 - DATE OF DISCHARGE: 12/22/2023
DC Dxs: Ambulatory Dysfunction
ASSESSMENT & PLAN
Severe hyponatremia due to function of HCTZ
- ADH excess due to SSRI or water excess
- Low Ur Na, Low Ur osm, Low Sr Osm
- s/p IV NS 1 L at ER
- Then FR 40 oz ( 1200 ml )
- Trend Na in AM
- Renal consult
MARIO
Underlying CKD3a
- s/p fluids in ER
- Trend Cr in AM
- repeat BMP tomorrow AM
Constipation with XR suggestion of moderate colonic stool burden.
NEG Obstruction
- Miralax 1 dose now and Miralax 1 dose in AM
Benign HTN on MDR
- cont. Amlodipine, Clonidine, Metoprolol succinate
- Hold HCTZ due to Low Na
Ambulatory Dysfunction
-PT/OT
Hx Breast Cancer
- in remission
Hypothyroidism
- asymptomatic
- cont LT4
HLD
- Not on Statin
- Diet control
Depression/ Anxiety
- stable
- Doxepin, escitalopram
DVT Px: SQH
Full code
IP MS
[2024-09-03] MEDS: MIRALAX 17 GRAMS PO (23:40)
[2024-09-04] VITALS (9 sets, daily range): BP systolic 114–149; BP diastolic 58–101
[2024-09-04] MEDS: SINEQUAN 10 MG PO ×2 (01:17→21:30)
--- NOTE | 2024-09-04 01:50 | PTCARENOTE ---
Patient arrived to unit from ED via stretcher. Patient pulled over from stretcher to bed in 316-1. Patient speaks minimal greek, son at bedside during admission to help answer questions. No c/o pain. Bed alarm placed. Call maher within reach.
Oriented to unit. Plan of care ongoing.
[2024-09-04] MEDS: SYNTHROID 75 MCG PO (05:07)
[2024-09-04 07:23] LABS: Blood Urea Nitrogen 14 mg/dl (7-17); Calcium 9.5 mg/dl (8.4-10.2); Carbon Dioxide 34 mmol/L (22-30); Chloride 84 mmol/L (98-107); Glucose 112 mg/dl (70-99); Potassium 3.3 mmol/L (3.5-5.1); Sodium 126 mmol/L (135-145); eGFR 52.08
--- NOTE | 2024-09-04 08:34 | W.PN.HOSP.TC ---
Today's Communication/Plan
-
see bold
Assessment / Plan
Assessment / Plan
Gen: NAD, Awake and alert
Eyes: EOMI, PERRLA, no scleral icterus.
Neck: supple.
CV: RRR, +S1/S2, no m/r/g.
Resp: CTAB, no rales, wheezes, or rhonchi.
Skin: No rashes.
Neuro: CN 2-12 intact, non-focal.
Psych: Normal mood and affect.
Severe hypotonic hyponatremia:
-likely multifactorial and due to HCTZ and SSRI, HCTZ stopped
-s/p 1L NS in the ER
-cont FR
-c/s renal
Other problems:
Constipation: Had large BM 09/03/24PM. Cont Miralax
Essential HTN: cont BB/Norvasc/clonidine. HCTZ stopped as above.
Ambulatory Dysfunction: PT/OT
CKD3a (MARIO has been ruled out)
h/o Breast Cancer
Hypothyroidism: TSH normal, cont Levoxyl
HLD
Depression/Anxiety: cont Doxepin/escitalopram
FULL/Heparin
Anticipated Discharge: Within 24 hours
Subjective/Interval History
-
Date of Service: September 04, 2024
Non-croatian speaking. Son at bedside.
Objective Data
-
Labs:
Laboratory Results
09/04/24
06:45
Sodium 126 L
Potassium 3.3 L
Chloride 84 L
Carbon Dioxide 34 H
BUN 14
Creatinine 1.1 H
Glucose 112 H
Calcium 9.5
Vital Signs:
Vital Signs
Temp Pulse Resp BP Pulse Ox
99.3 F 69 16 149/61 99
09/04/24 07:55 09/04/24 07:55 09/04/24 07:55 09/04/24 07:55 09/04/24 07:55
[2024-09-04] MEDS: CATAPRES 0.2 MG PO ×2 (08:58→15:44)
[2024-09-04] MEDS: MIRALAX 17 GRAMS PO (08:59)
[2024-09-04] MEDS: TOPROL XL 50 MG PO (08:59)
[2024-09-04] MEDS: HEPARIN 5000 UNITS SC ×2 (08:59→21:30)
[2024-09-04] MEDS: PROTONIX 40 MG PO (08:59)
[2024-09-04] MEDS: LEXAPRO 20 MG PO (08:59)
[2024-09-04] MEDS: NORVASC 10 MG PO (08:59)
[2024-09-04] MEDS: KCL 40 MEQ PO (11:21)
--- NOTE | 2024-09-04 13:42 | W.CON.NEPH ---
Consultation
-
Date/Time Consultation Requested: 09/04/24 0025
Date/Time Consultation Performed: 09/04/24 1430
Requesting Provider: Twan Gan
Performing Provider: Teresita Siddiqi
Reason for Consultation: Hyponatremia
Medical History
-
Chief Complaint: constipation
History of Present Illness:
73F HX left breast CA, HTN on Amlodipine, clonidine, HCTZ, Metoprolol, HLD, hypothyroidism on levothyroxine, depression/anxiety on Doxepin, escitalopram, GERD On PPI BID, ? mild chr hyponatremia who came for constipation. She reports having
intermittent constipation, was taking some laxatives at home as needed. More than a week ago she had a mechanical fall and bruised her left knee. Son reports only drinking one to 2 glasses of fluid per day. She has decreased appetite and has not
been eating well mainly with upset stomach, has mild nausea. her primary care is in [place] where she lives with other son. She has chronic low back pain too. Because of her ongoing stomach upset and constipation family brought her to the
hospital. Labs noted sodium low at 120 and cr 1.3. baseline cr of 1.1. She received NS 500cc in ER. She was placed on FR, repeat labs in am shows sodium improving to 126 and off HCTZ.
Has no fever. No chest pain or shortness of breath. Denies any dizziness. Reports eating well today however feels upset stomach after eating. Complaints of urinary frequency mostly at night.
Past Medical History
left breast CA, HTN, HLD, hypothyroidism, depression, anxiety
Past Surgical History: Other (left lumpectomy)
Social History
Tobacco: Non-Smoker
Alcohol: None
Personal:
Living: With Family ( lives with son)
Employment: Other
Family History
Family History: Not Pertinent
Allergies / Home Medications
Allergy/AdvReac Type Severity Reaction Status Date / Time
No Known Allergies Allergy Verified 12/21/23 15:51
�Medication �Instructions �Recorded �Confirmed �Type
clonidine HCl 0.2 mg tablet 0.2 mg PO TID 12/21/23 09/03/24 History
doxepin 10 mg capsule 10 mg PO HS 12/21/23 12/21/23 History
escitalopram oxalate 20 mg tablet 20 mg PO DAILY 12/21/23 09/03/24 History
esomeprazole magnesium 40 mg 40 mg PO BID Gastrointestinal Issue 12/21/23 09/03/24 History
capsule,delayed release
levothyroxine 75 mcg tablet 75 mcg PO DAILY Thyroid 12/21/23 09/03/24 History
metoprolol succinate 50 mg 50 mg PO DAILY Heart 12/21/23 09/03/24 History
tablet,extended release 24 hr Disease/Condition
amlodipine 5 mg tablet 10 mg PO DAILY 09/03/24 09/03/24 History
hydrochlorothiazide 12.5 mg capsule 12.5 mg PO DAILY 09/03/24 09/03/24 History
pantoprazole 40 mg tablet,delayed 40 mg PO DAILY 09/03/24 09/03/24 History
release (Protonix)
vibegron 75 mg tablet (Gemtesa) 75 mg PO DAILY 09/03/24 09/03/24 History
Review of Systems
-
All complete 12 point review of system have been inquired and found negative other than stated in HPI
Physical Exam
Vital Signs
Vital Signs
Temp Pulse Resp BP Pulse Ox
98.5 F 64 14 118/100 96
09/04/24 11:38 09/04/24 11:38 09/04/24 11:38 09/04/24 11:38 09/04/24 11:38
Lab Results
WBC 10.8 10^3/uL (4.8-10.8) 09/03/24 19:26
RBC 4.72 10^6/uL (4.20-5.40) 09/03/24 19:26
Hgb 14.0 g/dL (12.0-16.0) 09/03/24 19:26
Hct 40.5 % (37.0-47.0) 09/03/24 19:26
Plt Count 278 10^3/uL (130-400) 09/03/24 19:26
Sodium 126 mmol/L (135-145) L 09/04/24 06:45
Potassium 3.3 mmol/L (3.5-5.1) L 09/04/24 06:45
Chloride 84 mmol/L (98-107) L 09/04/24 06:45
Carbon Dioxide 34 mmol/L (22-30) H 09/04/24 06:45
BUN 14 mg/dl (7-17) 09/04/24 06:45
Creatinine 1.1 mg/dL (0.6-1.0) H 09/04/24 06:45
eGFR 52.08 09/04/24 06:45
Glucose 112 mg/dl (70-99) H 09/04/24 06:45
Calcium 9.5 mg/dl (8.4-10.2) 09/04/24 06:45
Albumin 4.5 g/dl (3.5-5.0) 09/03/24 19:26
Abd xray:
IMPRESSION:
Nonobstructive bowel gas pattern.
Moderate colonic stool burden.
Physical Exam
General: Awake, Alert, Oriented, AOx3, No Distress and Nontoxic
HEENT: EOMI, Anicteric, Conjunctivae Clear, Facial Symmetry and No JVD
Respiratory: Clear, Normal Excursion and Nonlabored Respirations
Cardiac: S1/S2 and Regular Rate/Rhythm
Breast: Deferred by me
Abdomen: Soft, Nontender and Nondistended
Musculoskeletal: No Cyanosis and No Edema
Skin: No Rash
Psych: Mood/afflect pleasant, Insight/judgement good and Appropriate
Data Reviewed
-
Radiology: Report Reviewed by me, Discussed with Patient and Discussed with Family
Labs: Labs Reviewed by me, Discussed with Patient and Discussed with Family
Assessment/Plan
-
IMP:
Severe hyponatremia
CKD3
Constipation
Essential HTN
Ambulatory Dysfunction
h/o Breast Cancer
Hypothyroidism
HLD
Depression/Anxiety
Plan:
p/w constipation, found to have hyponatremia
likely from HCTZ, SSRI +/- constipation, chr back pain, decreased po intake
U osmo 223, U na low 19-some prerenal component too
sodium improving to 126, cont FR
repeat labs if decreases likely try HTS
no further HCTZ, if sodium not maintained in future likely need alternative to SSRI
bp stable on home meds, off HTCZ
TSH normal
replace k
cr at baseline
Given frequency of urine check urine analysis
labs in am
she will need to see her PCP In [place]
d/w pt and son at bedside
[2024-09-04 17:45] LABS: Sodium 123 mmol/L (135-145)
[2024-09-04] MEDS: SODIUM CHLORIDE 3% 250 IV (19:02)
[2024-09-04] MEDS: CATAPRES PO (21:26)
[2024-09-04] MEDS: SENOKOT 8.6 MG PO (21:30)
[2024-09-04] MEDS: XALATAN OPHTHALMIC SOLUTION 1 DROP BOTH EYES (21:32)
[2024-09-04 22:38] LABS: Sodium 125 mmol/L (135-145)
[2024-09-05 02:52] LABS: Sodium 127 mmol/L (135-145)
[2024-09-05 03:00] VITALS: BP 110/61
[2024-09-05] MEDS: SYNTHROID 75 MCG PO (05:05)
[2024-09-05 06:19] LABS: Urine Albumin Trace (Neg - Trace); Urine Bilirubin Negative (Negative); Urine Character Slightly Cloudy (Clear); Urine Color Yellow; Urine Glucose Negative (Negative); Urine Ketone Negative (Negative); Urine Leukocyte 1+ (Negative); Urine Nitrite Positive (Negative); Urine Occult Blood Negative (Negative); Urine Urobilinogen Negative (Neg - 1+)
[2024-09-05 06:41] LABS: Urine Amorphous Seen; Urine Urothelial Cell >30 /LPF (FEW)
[2024-09-05 06:42] LABS: Urine Squamous Cell 21-25 /LPF (Few)
[2024-09-05 06:59] LABS: Urine Bacteria Many (Negative)
[2024-09-05 07:00] LABS: Urine Red Blood Cell 0-2 /HPF (0-2); Urine White Cell 16-20 /HPF (0-5)
[2024-09-05 07:48] VITALS: BP 115/67
[2024-09-05] MEDS: PROTONIX 40 MG PO (09:59)
[2024-09-05] MEDS: MIRALAX 17 GRAMS PO (09:59)
[2024-09-05] MEDS: TOPROL XL 50 MG PO (09:59)
[2024-09-05] MEDS: CATAPRES 0.2 MG PO ×3 (09:59→21:00)
[2024-09-05] MEDS: LEXAPRO 20 MG PO (10:00)
[2024-09-05] MEDS: NORVASC 10 MG PO (10:00)
[2024-09-05] MEDS: HEPARIN 5000 UNITS SC ×2 (10:00→20:58)
[2024-09-05 10:13] LABS: Blood Urea Nitrogen 18 mg/dl (7-17); Calcium 9.2 mg/dl (8.4-10.2); Carbon Dioxide 30 mmol/L (22-30); Chloride 90 mmol/L (98-107); Glucose 108 mg/dl (70-99); Potassium 4.1 mmol/L (3.5-5.1); Sodium 129 mmol/L (135-145); eGFR 46.91
--- NOTE | 2024-09-05 10:38 | W.PN.HOSP.TC ---
Addendum entered and electronically signed by Ronny Muro MD 09/05/24 14:13:
Component of SIADH
Original Note:
Today's Communication/Plan
-
d/c
Assessment / Plan
Assessment / Plan
Gen: NAD, Awake and alert
Eyes: EOMI, PERRLA, no scleral icterus.
Neck: supple.
CV: RRR, +S1/S2, no m/r/g.
Resp: CTAB, no rales, wheezes, or rhonchi.
Skin: No rashes.
Neuro: CN 2-12 intact, non-focal.
Psych: Normal mood and affect.
Severe hypotonic hyponatremia:
-likely multifactorial and due to HCTZ and SSRI, HCTZ stopped
-s/p 1L NS in the ER
-cont FR
-renal following, ok for discharge as per discussion with Dr. Taylor
Other problems:
Constipation: Had large BM 09/03/24PM. Cont Miralax
Essential HTN: cont BB/Norvasc/clonidine. HCTZ stopped as above.
Ambulatory Dysfunction: PT/OT
CKD3a (MARIO has been ruled out)
h/o Breast Cancer
Hypothyroidism: TSH normal, cont Levoxyl
HLD
Depression/Anxiety: cont Doxepin/escitalopram
FULL/Heparin
Medically cleared for d/c pending discussion with CM regarding safe discharge.
Anticipated Discharge: Today
Subjective/Interval History
-
Date of Service: September 05, 2024
Objective Data
-
Labs:
Laboratory Results
09/04/24 09/05/24 09/05/24
22:05 02:25 07:58
Sodium 125 L 127 L 129 L
Potassium 4.1
Chloride 90 L
Carbon Dioxide 30
BUN 18 H
Creatinine 1.2 H
Glucose 108 H
Calcium 9.2
Vital Signs:
Vital Signs
Temp Pulse Resp BP Pulse Ox
98 F 70 16 115/67 98
09/05/24 07:48 09/05/24 09:59 09/05/24 07:48 09/05/24 09:59 09/05/24 07:48
I&O
09/04/24 09/05/24 09/06/24
06:59 06:59 06:59
Intake Total 370 / 370
Output Total 300 / 300
Balance 70 / 70
[2024-09-05 12:19] VITALS: BP 120/52
--- NOTE | 2024-09-05 13:49 | PN.CDI ---
CDI
- -
CDI:
Physician Documentation Request
Admit Date: 09/03/24 22:56
Dear Doctor Jina,
Please review the following and provide your response in the progress notes.
Clinical Indicators:
Pt admitted with Hyponatremia
Documented throughout record, ' Severe hypotonic hyponatremia:likely multifactorial and due to HCTZ and SSRI, HCTZ stopped....s/p 1L NS in the ERcont FR renal following..'
Documented per H&P, ' Severe hyponatremia due to function of HCTZ ADH excess due to SSRI or water excess Low Ur Na, Low Ur osm, Low Sr Osm ...'
09/03/24 09/03/24
19:26 21:28
Serum Osmolality 253 L
Urine Osmolality 223 L
Urine Sodium 19 L
Please provide the suspected etiology of the documented ADH excess :
SIADH
Hyponatremia due to SSRI only
Other ( please specify)
Use of terms such as suspected, likely, concern for, or probable (associated with a specific diagnosis that is being evaluated, monitored, or treated as if it exists) are acceptable and can be coded in the inpatient setting, when documented at the
time of discharge.
Thank you,
Deysi Patel RN
CDI Specialist
[place] [facility]
Please use your independent medical judgment in providing your response.
--- NOTE | 2024-09-05 14:14 | W.PN.NEPH.PH ---
Today's Communication / Plan
-
Okay for discharge from renal standpoint follow-up with PCP
Assessment/Plan
-
IMP:
Severe hyponatremia
CKD3
Constipation
Essential HTN
Ambulatory Dysfunction
h/o Breast Cancer
Hypothyroidism
HLD
Depression/Anxiety
Plan:
p/w constipation, found to have hyponatremia
likely from HCTZ, SSRI +/- constipation, chr back pain, decreased po intake
U osmo 223, U na low 19-some prerenal component too
no further HCTZ, if sodium not maintained in future likely need alternative to SSRI
bp stable on home meds, off HTCZ
TSH normal
replace k
cr at baseline
Given frequency of urine check urine analysis
she will need to see her PCP In [place]
Sodium today 129 okay to discharge from renal standpoint
-
-
Date of Service: September 05, 2024
CC / HPI / ROS
-
No chest pain shortness of breath comfortable. Language barrier as patient is not Bulgarian speaking
Chart reviewed
Patient seen for hyponatremia improved
no acute events overnight
Labs
-
Labs:
WBC 10.8 10^3/uL (4.8-10.8) 09/03/24 19:26
RBC 4.72 10^6/uL (4.20-5.40) 09/03/24 19:26
Hgb 14.0 g/dL (12.0-16.0) 09/03/24 19:26
Hct 40.5 % (37.0-47.0) 09/03/24 19:26
Plt Count 278 10^3/uL (130-400) 09/03/24 19:26
Sodium 129 mmol/L (135-145) L 09/05/24 07:58
Potassium 4.1 mmol/L (3.5-5.1) 09/05/24 07:58
Chloride 90 mmol/L (98-107) L 09/05/24 07:58
Carbon Dioxide 30 mmol/L (22-30) 09/05/24 07:58
BUN 18 mg/dl (7-17) H 09/05/24 07:58
Creatinine 1.2 mg/dL (0.6-1.0) H 09/05/24 07:58
eGFR 46.91 09/05/24 07:58
Glucose 108 mg/dl (70-99) H 09/05/24 07:58
Calcium 9.2 mg/dl (8.4-10.2) 09/05/24 07:58
Albumin 4.5 g/dl (3.5-5.0) 09/03/24 19:26
Physical Exam
-
Vital Signs:
Vital Signs
Temp Pulse Resp BP Pulse Ox
98 F 65 16 120/52 98
09/05/24 12:19 09/05/24 12:19 09/05/24 12:19 09/05/24 12:19 09/05/24 12:19
Respiratory:: Bilateral: CTA
Lung Excursion:: Normal
Abdomen:: Soft
Bowel Sounds:: Normal
Extremity Edema:: None: Bilateral:
Chauhan Catheter: No
[2024-09-05 15:26] VITALS: BP 130/63
[2024-09-05] MEDS: TYLENOL 650 MG PO (16:06)
--- NOTE | 2024-09-05 16:21 | W.PN.UPDATE ---
Update Note
Progress Note Update
Cross coverage update:
Alerted by nurse concern for abd pain and earlier verbal reports of large bowel movement blow out watery (not documented, unclear if accurate).
On evaluation at bedside, patient does note appear to be in acute distress, vital signs stable. On further discussion with patient and nurse it appears patient is actually more concern with back pain.
-Tylenol was given as ordered prn
- Lidocaine patches for back were also ordered
-simethicone ordered as needed for gas pain abd discomfort (in case GI symptoms contributing)
[2024-09-05] MEDS: LIDOCAINE 4% PATCH 2 PATCH TOPICAL (16:45)
[2024-09-05 19:30] VITALS: BP 124/56
[2024-09-05] MEDS: SINEQUAN 10 MG PO (21:00)
[2024-09-05] MEDS: XALATAN OPHTHALMIC SOLUTION 1 DROP BOTH EYES (21:00)
[2024-09-05] MEDS: SENOKOT 8.6 MG PO (21:00)
[2024-09-05 23:40] VITALS: BP 127/60
[2024-09-06 03:10] VITALS: BP 135/57
[2024-09-06] MEDS: SYNTHROID 75 MCG PO (05:51)
[2024-09-06 07:00] VITALS: BP 114/60
[2024-09-06 07:18] LABS: Blood Urea Nitrogen 19 mg/dl (7-17); Calcium 9.2 mg/dl (8.4-10.2); Carbon Dioxide 31 mmol/L (22-30); Chloride 88 mmol/L (98-107); Glucose 113 mg/dl (70-99); Sodium 127 mmol/L (135-145); eGFR 58.39
--- NOTE | 2024-09-06 08:10 | W.PN.HOSP.TC ---
Today's Communication/Plan
-
see bold
Assessment / Plan
Assessment / Plan
Gen: Remains NAD, Awake and alert
Eyes: EOMI, PERRLA, no scleral icterus.
Neck: supple.
CV: Remains RRR, +S1/S2, no m/r/g.
Resp: CTAB anteriorly, no rales, wheezes, or rhonchi.
Skin: No rashes.
Neuro: CN 2-12 intact, non-focal.
Psych: Normal mood and affect.
Severe hypotonic hyponatremia:
-likely multifactorial and due to HCTZ and SSRI, HCTZ stopped
-s/p 1L NS in the ER
-cont FR
-renal following
-consider Samsca
Other problems:
Constipation: Had large BM 09/03/24PM. Cont Miralax
Essential HTN: cont BB/Norvasc/clonidine. HCTZ stopped as above.
Ambulatory Dysfunction: PT/OT
CKD3a (MARIO has been ruled out)
h/o Breast Cancer
Hypothyroidism: TSH normal, cont Levoxyl
HLD
Depression/Anxiety: cont Doxepin/escitalopram
FULL/Heparin
Anticipated Discharge: Within 24 hours
Subjective/Interval History
-
Date of Service: September 06, 2024
Patient reported some back pain.
Objective Data
-
Labs:
Laboratory Results
09/06/24
06:23
Sodium 127 L
Potassium 4.0
Chloride 88 L
Carbon Dioxide 31 H
BUN 19 H
Creatinine 1.0
Glucose 113 H
Calcium 9.2
Vital Signs:
Vital Signs
Temp Pulse Resp BP Pulse Ox
98.4 F 64 17 114/60 98
09/06/24 07:00 09/06/24 07:00 09/06/24 07:00 09/06/24 07:00 09/06/24 07:00
I&O
09/05/24 09/06/24 09/07/24
06:59 06:59 06:59
Intake Total 2470 / 2470
Output Total 300 / 300
Balance 2170 / 2170
[2024-09-06] MEDS: CATAPRES 0.2 MG PO ×3 (09:13→21:17)
[2024-09-06] MEDS: PROTONIX 40 MG PO (09:13)
[2024-09-06] MEDS: TOPROL XL 50 MG PO (09:14)
[2024-09-06] MEDS: LEXAPRO 20 MG PO (09:14)
[2024-09-06] MEDS: HEPARIN 5000 UNITS SC ×2 (09:14→21:17)
[2024-09-06] MEDS: NORVASC 10 MG PO (09:14)
[2024-09-06] MEDS: LIDOCAINE 4% PATCH 2 PATCH TOPICAL (09:16)
[2024-09-06] MEDS: MIRALAX 17 GRAMS PO (09:18)
[2024-09-06 11:00] VITALS: BP 123/61
--- NOTE | 2024-09-06 12:02 | W.PN.NEPH.PH ---
Today's Communication / Plan
-
nss
Assessment/Plan
-
IMP:
Severe hyponatremia
CKD3
Constipation
Essential HTN
Ambulatory Dysfunction
h/o Breast Cancer
Hypothyroidism
HLD
Depression/Anxiety
Plan:
IVF NSS today given diarrhea
follow BMP
-
-
Date of Service: September 06, 2024
CC / HPI / ROS
-
Chief Complaint:
hyponatremia
History of Present Illness:
Na lower at 127
diarrhea now
BP stable
Review of Systems:
c/o dry nose/mouth
Labs
-
Labs:
WBC 10.8 10^3/uL (4.8-10.8) 09/03/24 19:26
RBC 4.72 10^6/uL (4.20-5.40) 09/03/24 19:26
Hgb 14.0 g/dL (12.0-16.0) 09/03/24 19:26
Hct 40.5 % (37.0-47.0) 09/03/24 19:26
Plt Count 278 10^3/uL (130-400) 09/03/24 19:26
Sodium 127 mmol/L (135-145) L 09/06/24 06:23
Potassium 4.0 mmol/L (3.5-5.1) 09/06/24 06:23
Chloride 88 mmol/L (98-107) L 09/06/24 06:23
Carbon Dioxide 31 mmol/L (22-30) H 09/06/24 06:23
BUN 19 mg/dl (7-17) H 09/06/24 06:23
Creatinine 1.0 mg/dL (0.6-1.0) 09/06/24 06:23
eGFR 58.39 09/06/24 06:23
Glucose 113 mg/dl (70-99) H 09/06/24 06:23
Calcium 9.2 mg/dl (8.4-10.2) 09/06/24 06:23
Albumin 4.5 g/dl (3.5-5.0) 09/03/24 19:26
Physical Exam
-
Vital Signs:
Vital Signs
Temp Pulse Resp BP Pulse Ox
98.1 F 62 17 123/61 100
09/06/24 11:00 09/06/24 11:00 09/06/24 11:00 09/06/24 11:00 09/06/24 11:00
Cardiovascular:: Regular rate and rhythm
Respiratory:: Bilateral: Coarse
Lung Excursion:: Normal
Abdomen:: Nontender and Soft
Bowel Sounds:: Normal
Extremity Edema:: None: Bilateral:
[2024-09-06] MEDS: NSS 1000 IV (12:16)
[2024-09-06 15:00] VITALS: BP 133/62
--- NOTE | 2024-09-06 15:09 | CM ---
Initial Assessment completed with son, Fernanda Ellis, via phone # [phone]
Patient's other son lives in [place], [place]; mother goes back and forth between her son's homes
Family Physician: Onofre Mark MD, [place], [place]; son will confirm address and phone number
Pharmacy verified: [facility], [address], [place], [place]
Son reported that his mother is currently living with him and his in a multilevel home ([address], [place] [address])
1st floor set with bedroom and bath for mother in son's home; bath has tub w/ shower
PLOF: son reported that his mother is independent with personal care; able to manage her medications herself; ambulates with a Walker
Son, Fernanda, will transport
Patient does not drive
Per PT, patient does not need skilled PT
Plan: Discharge to son's home in [place] when medically stable
[2024-09-06 19:00] VITALS: BP 130/64
[2024-09-06] MEDS: SINEQUAN 10 MG PO (21:17)
[2024-09-06] MEDS: XALATAN OPHTHALMIC SOLUTION 1 DROP BOTH EYES (21:18)
[2024-09-06] MEDS: SENOKOT 8.6 MG PO (21:18)
[2024-09-06 23:00] VITALS: BP 144/64
[2024-09-07 03:00] VITALS: BP 122/59
[2024-09-07] MEDS: NSS 1000 IV (05:50)
[2024-09-07] MEDS: SYNTHROID 75 MCG PO (05:50)
[2024-09-07 06:41] LABS: Blood Urea Nitrogen 14 mg/dl (7-17); Calcium 9.2 mg/dl (8.4-10.2); Carbon Dioxide 30 mmol/L (22-30); Chloride 94 mmol/L (98-107); Glucose 119 mg/dl (70-99); Potassium 4.3 mmol/L (3.5-5.1); Sodium 131 mmol/L (135-145); eGFR 58.39
[2024-09-07 07:00] VITALS: BP 147/75
--- NOTE | 2024-09-07 08:25 | W.PN.HOSP.TC ---
Today's Communication/Plan
-
d/c
Assessment / Plan
Assessment / Plan
Gen: Remains NAD, Awake and alert
Eyes: EOMI, PERRLA, no scleral icterus.
Neck: supple.
CV: Continues to remain RRR, +S1/S2, no m/r/g.
Resp: Continues to remain CTAB anteriorly, no rales, wheezes, or rhonchi.
Abd: +BS/soft/NT/ND
Skin: No rashes.
Neuro: CN 2-12 intact, non-focal.
Psych: Normal mood and affect.
Severe hypotonic hyponatremia:
-likely multifactorial and due to HCTZ and SSRI, HCTZ stopped
-s/p 1L NS in the ER
-currently on NS @ 70cc/hr
-cont FR
-renal following. Case discussed with Dr. Maloney and he has cleared the patient for discharge from his standpoint.
Other problems:
Constipation: Had large BM 09/03/PM. Cont Miralax
Essential HTN: cont BB/Norvasc/clonidine. HCTZ stopped as above.
Ambulatory Dysfunction: PT/OT
CKD3a (MARIO has been ruled out)
h/o Breast Cancer
Hypothyroidism: TSH normal, cont Levoxyl
HLD
Depression/Anxiety: cont Doxepin/escitalopram
FULL/Heparin
Total time spent on d/c = 31 min. This included today's physical exam, progress note, review of laboratory and diagnostic data, preparation of discharge documents and prescriptions, and discussions about the pt's hospital course and discharge plan
with the patient and other medical affairs leader involved in the patient's care.
Anticipated Discharge: Today
Subjective/Interval History
-
Date of Service: September 07, 2024
No new events.
Objective Data
-
Labs:
Laboratory Results
09/07/24
05:47
Sodium 131 L
Potassium 4.3
Chloride 94 L
Carbon Dioxide 30
BUN 14
Creatinine 1.0
Glucose 119 H
Calcium 9.2
Vital Signs:
Vital Signs
Temp Pulse Resp BP Pulse Ox
97.9 F 61 16 122/59 96
09/07/24 03:00 09/07/24 03:00 09/07/24 03:00 09/07/24 03:00 09/07/24 03:00
I&O
09/06/24 09/07/24 09/08/24
06:59 06:59 06:59
Intake Total 2470 / 2470 1320 / 1320
Output Total 300 / 300
Balance 2170 / 2170 1320 / 1320
[2024-09-07] MEDS: LEXAPRO 20 MG PO (09:52)
[2024-09-07] MEDS: PROTONIX 40 MG PO (09:52)
[2024-09-07] MEDS: CATAPRES 0.2 MG PO (09:53)
[2024-09-07] MEDS: MIRALAX 17 GRAMS PO (09:53)
[2024-09-07] MEDS: HEPARIN 5000 UNITS SC (09:53)
[2024-09-07] MEDS: NORVASC 10 MG PO (09:53)
[2024-09-07] MEDS: LIDOCAINE 4% PATCH 2 PATCH TOPICAL (09:56)
[2024-09-07] MEDS: TOPROL XL 50 MG PO (09:57)
--- NOTE | 2024-09-07 10:44 | W.PN.NEPH.PH ---
Today's Communication / Plan
-
IVF
Assessment/Plan
-
IMP:
Severe hyponatremia
CKD3
Constipation
Essential HTN
Ambulatory Dysfunction
h/o Breast Cancer
Hypothyroidism
HLD
Depression/Anxiety
Plan:
IVF NSS today still
follow BMP
-
-
Date of Service: September 07, 2024
CC / HPI / ROS
-
Chief Complaint:
hyponatremia
History of Present Illness:
Na up to 131
diarrhea
BP stable
Review of Systems:
c/o dry nose/mouth
Labs
-
Labs:
WBC 10.8 10^3/uL (4.8-10.8) 09/03/24 19:26
RBC 4.72 10^6/uL (4.20-5.40) 09/03/24 19:26
Hgb 14.0 g/dL (12.0-16.0) 09/03/24 19:26
Hct 40.5 % (37.0-47.0) 09/03/24 19:26
Plt Count 278 10^3/uL (130-400) 09/03/24 19:26
Sodium 131 mmol/L (135-145) L 09/07/24 05:47
Potassium 4.3 mmol/L (3.5-5.1) 09/07/24 05:47
Chloride 94 mmol/L (98-107) L 09/07/24 05:47
Carbon Dioxide 30 mmol/L (22-30) 09/07/24 05:47
BUN 14 mg/dl (7-17) 09/07/24 05:47
Creatinine 1.0 mg/dL (0.6-1.0) 09/07/24 05:47
eGFR 58.39 09/07/24 05:47
Glucose 119 mg/dl (70-99) H 09/07/24 05:47
Calcium 9.2 mg/dl (8.4-10.2) 09/07/24 05:47
Albumin 4.5 g/dl (3.5-5.0) 09/03/24 19:26
Physical Exam
-
Vital Signs:
Vital Signs
Temp Pulse Resp BP Pulse Ox
98.3 F 71 18 147/75 99
09/07/24 07:00 09/07/24 07:00 09/07/24 07:00 09/07/24 07:00 09/07/24 07:00
Cardiovascular:: Regular rate and rhythm
Respiratory:: Bilateral: CTA
Lung Excursion:: Normal
Abdomen:: Nontender and Soft
Bowel Sounds:: Normal
Extremity Edema:: None: Bilateral:
[2024-09-07 11:00] VITALS: BP 110/70
--- NOTE | 2024-09-07 12:35 | W.PN.UPDATE ---
Update Note
Progress Note Update
Called by nursing for temperature of 100.5 �F. Repeat temperature was 99.2 �F. Patient without new symptoms. Medically cleared for discharge. Patient can monitor her temperature at home.
--- NOTE | 2024-09-07 12:42 | PTCARENOTE ---
made aware of the Temp. temp rechecked 99.2 pt no nv d no other complaints . Discharge is scheduled as ordered
--- NOTE | 2024-09-07 13:33 | CM ---
entered order for discharge.
Pt has limited Portuguese . He told me she was going home and to call her son .
Spoke with son he said he will take her home to his [place] [address] [place] [address].
Son said there are family members in home that can assist her with a shower.
Pt is for discharge today.
PLan Home no needs
--- NOTE | 2024-09-07 13:37 | PTCARENOTE ---
son informed me that pt will need to ambulate up the steps if she wants to shower so she will not be able to shower once she gets home. I asked how she will get cleaneds once she goes home. he said she will stay downstairs. I did notify , PT
order obtaned. Pt has also been unsteady on feet during my shift requiring 1 assist to and from bathroom. PT called and will see pt.
[2024-09-07 15:00] VITALS: BP 139/60
--- NOTE | 2024-09-07 15:45 | W.DCSUMMARY ---
Discharge Summary
Discharge Data
Date of Admission: 09/03/24
Date of Discharge: 09/07/24
-
Pending Results: No
Hospital Course
Primary diagnoses:
Severe hypotonic hyponatremia
Secondary diagnoses:
Constipation
Ambulatory Dysfunction
Chronic kidney disease stage 3a
h/o Breast Cancer
Hypothyroidism
Hyperlipidemia
Depression
Anxiety
Consults:
Nephrology
Imaging:
OBST series: Nonobstructive bowel gas pattern. Moderate colonic stool burden.
Hospital course: 74-year-old female who presented with a chief complaint of constipation as outlined H&P done on admission. Patient was found to have a sodium of 120. This was likely multifactorial and due to HCTZ and SSRI. The patient received 1
L normal saline in the ER. Her HCTZ was stopped. Patient was placed on fluid restriction. She was also given maintenance normal saline. She was seen in consultation by nephrology. Her sodium improved to 131. The case was discussed with Dr. Maloney
on the day of discharge and he cleared the patient for discharge from his standpoint. The patient was discharged in medically stable condition.
Discharge Plan
-
Patient Disposition: Home (Routine Discharge)
Discharge Diagnosis/Procedures: Hyponatremia
Condition: Good
Diet: Low Cholesterol and Low Sodium
Activity: With assistance
Driving Restrictions: No driving
Blood Work: BMP in 3-5 days, script from PCP
Referrals:
UNKNOWN - PT DOES,NOT KNOW [Family Provider] - in two to three days
Prescriptions:
New
polyethylene glycol 3350 17 gram Powder In Packet
17 g PO DAILY Qty: 0 0RF
Continued
metoprolol succinate 50 mg tablet extended release 24 hr
50 mg PO DAILY
doxepin 10 mg capsule
10 mg PO HS
levothyroxine 75 mcg tablet
75 mcg PO DAILY
clonidine HCl 0.2 mg tablet
0.2 mg PO TID
esomeprazole magnesium 40 mg capsule,delayed release(DR/EC)
40 mg PO BID
escitalopram oxalate 20 mg tablet
20 mg PO DAILY
Patient Comments:
12/21/2023: Spouse states yes, pt unable to confirm, kept on grabbing bottles. Filled 11/07/23, 90 tabs for 90 days from
Gemtesa 75 mg Tablet
75 mg PO DAILY
amlodipine 5 mg tablet
10 mg PO DAILY
Discontinued
hydrochlorothiazide 12.5 mg Capsule
12.5 mg PO DAILY
pantoprazole [Protonix] 40 mg Tablet,Delayed Release (Dr/Ec)
40 mg PO DAILY
Discharge Orders:
Discharge Patient (As Directed); Ordered 09/07/24
Ordered By: Ronny Muro
Discharge Date and Time
Print Language: CUBAN
== END 2024-09-07 17:00 | disposition home or self-care (01) | DRG 645 ==
LOC: 3 WEST ACU 22:56
PROVIDERS: Nurse Practitioner Family; Registered Nurse; ADMITTING PHYSICIAN Internal Medicine; ATTENDING PHYSICIAN Internal Medicine; CONSULT PHYSICIAN Internal Medicine; EMERGENCY PHYSICIAN Emergency Medicine
DX: E22.2 Syndrome of inappropriate secretion of antidiuretic hormone (principal); I12.9 Hypertensive chronic kidney disease with stage 1 through stage 4 chronic kidney disease, or unspecified chronic kidney disease; N18.31 Chronic kidney disease, stage 3a; K59.00 Constipation, unspecified; E03.9 Hypothyroidism, unspecified; E78.00 Pure hypercholesterolemia, unspecified; F32.A Depression, unspecified; F41.9 Anxiety disorder, unspecified; G89.29 Other chronic pain; Z85.3 Personal history of malignant neoplasm of breast; Z79.890 Hormone replacement therapy; Z79.899 Other long term (current) drug therapy
CPT/HCPCS: 74022; 80048; 80053; 81003; 81015; 83690; 83930; 83935; 84295; 84300; 84443; 85025; 96360; 99285